=== PATIENT | male | born 1965 | race Caucasian/White ===

== ENCOUNTER 2017-10-10 07:59 | Day surgery (SDC) | payer BC ==
--- NOTE | 2017-10-04 07:46 | HP ---
CC: Tapan Todd MD * ADMITTING HISTORY AND PHYSICAL: DATE OF ADMISSION: 10/10/17 ADMITTING DIAGNOSIS: Right renal calculus. PLANNED PROCEDURE: Shockwave lithotripsy of right renal calculus. SURGEON: Josh Oakes MD HISTORY OF PRESENT ILLNESS: Cyrus Sullivan is a 51-year-old gentleman with a history of recurrent renal calculi. He had originally been evaluated for left- sided pain which is related to a calculus that I suspect that he passed. He was noted at that time to have an 8-mm nonobstructing calculus in the right kidney and is now being brought in for shockwave lithotripsy for this right- sided calculus. PAST MEDICAL HISTORY: Significant for: 1. Hypertension. 2. History of herniated disk (cervical and lumbar). 3. Recurrent renal calculi. PAST SURGICAL HISTORY: Significant for: 1. Appendectomy. 2. Bilateral knee arthroscopies. MEDICATIONS ON ADMISSION: 1. Amlodipine 5 mg a day. 2. Aspirin 81 mg which is currently on hold. ALLERGIES: No known drug allergies. FAMILY HISTORY: Both his mother and father have had kidney stones. SMOKING HISTORY: He is a nonsmoker. REVIEW OF SYSTEMS: He denies any chest pain or shortness of breath. There is no history of diabetes mellitus or any other major systemic illness. PHYSICAL EXAMINATION GENERAL: Reveals a pleasant healthy-appearing middle aged gentleman. VITAL SIGNS: Blood pressure is 142/86, pulse 88 per minute and regular, oxygen saturation 96% on room air. LUNGS: Clear bilaterally. CARDIOVASCULAR: Regular rate and rhythm. S1, S2. ABDOMEN: Soft without masses. IMPRESSION: A 51-year-old gentleman with an 8-mm calculus in the right kidney who desires treatment of the same. I have discussed the procedure including possible risks of bleeding, infection, incomplete fragmentation, and possible injury to the kidney. He understands and wishes to proceed as planned. PLAN: Shockwave lithotripsy of right renal calculus. [id number]/[facility] #: [id number] MTDD
[~2017-10-10 07:59] MED LIST: Buffered Lidocaine 0.9% SYRIN* 5 ML/SYR SYRINGE INTRADERM ONE; DiMENhydriNATE IV* 50 MG/ML VIAL IV PUSH PRN; Famotidine IV* 10 MG/ML 2 ML (20 mg) IV ONE; Morphine INJ* 2 MG/ML 1 ML CARPUJECT IV PRN; Naloxone* 0.4 MG/ML 1 ML VIAL IV PRN; PROCHLORPERAZINE INJ 5 MG/ML 2 ML VIAL IV PRN; Scopolamine 1.5 mg* PATCH TRANSDERM PRN; cefTRIAXone(*) 2 GM in NS 0.9% 50 ML* 50 ML IVPB ONE; fentaNYL* 50 MCG/ML 2 ML VIAL (100 MCG VIAL) IV PRN; oxyCODONE/Acetamin 5/325 MG* TAB PO PRN
[2017-10-10] MEDS ORDERED: cefTRIAXone(*) 2 GM ADDV.VIAL IVPB ONE (08:13)
[2017-10-10] MEDS ORDERED: Famotidine IV* 10 MG/ML 2 ML (20 mg) ONE (08:13)
[2017-10-10] MEDS ORDERED: fentaNYL* 50 MCG/ML 2 ML VIAL (100 MCG VIAL) ONE (09:48)
[2017-10-10] MEDS ORDERED: Midazolam* 1 MG/ML 5 ML VIAL (5 MG) ONE (09:49)
--- NOTE | 2017-10-10 10:25 | RAD ---
INDICATION: Nephrolithiasis. Lithotripsy. COMPARISON: September 30, 2017 TECHNIQUE: A single view of the abdomen is submitted. FINDINGS: Bones: There are no acute bony findings. Soft tissues: The soft tissues appear normal. The psoas margins are sharp. Bowel gas pattern: Normal Calcifications: There is a 5 mm lower pole right renal calculus. No other calcifications are seen. Other: None IMPRESSION: RIGHT-SIDED NEPHROLITHIASIS.
[2017-10-10] MEDS ORDERED: Ondansetron INJ* 2 MG/ML VIAL ONE (10:44)
[2017-10-10] MEDS ORDERED: Lidocaine 2% PF * 5 ML VIAL ONE (10:44)
[2017-10-10] MEDS ORDERED: Propofol* 10 MG/ML 20 ML BTL IV PUSH ONE (10:44)
[2017-10-10] MEDS ORDERED: Dexamethasone IV* 4 MG/ML 1 ML (4 MG) ONE (10:44)
[2017-10-10 12:13] VITALS: BP 145/94
--- NOTE | 2017-10-10 14:10 | RAD ---
INDICATION: Lithotripsy, postoperative study. COMPARISON: Comparison is made with a prior CT of the abdomen and pelvis from March 03, 2017 and a KUB study from October 10, 2017. TECHNIQUE: Frontal supine films of the abdomen were obtained. FINDINGS: The small bowel and colon appear nondistended. There are several small calcifications which project over the lower pole of the right kidney most consistent with calculus fragments. IMPRESSION: SMALL RIGHT RENAL CALCULI FRAGMENTS.
--- NOTE | 2017-10-10 23:59 | OP ---
CC: Dr. Todd * DATE OF OPERATION: 10/10/17 - SDS DATE OF : 63 SURGEON: Josh Oakes MD ANESTHESIOLOGIST: Dr. Olivo. ANESTHESIA: General. PRE-OP DIAGNOSIS: Right renal calculus. POST-OP DIAGNOSIS: Right renal calculus. OPERATIVE PROCEDURE: Shockwave lithotripsy of right renal calculus. COMPLICATIONS: None. POSTOPERATIVE CONDITION: Stable. INDICATIONS: Cyrus Sullivan is a 51-year-old gentleman who was evaluated and noted to have approximately 7 to 8 mm calculus in the right kidney. He desires treatment of the same and after a thorough discussion of the procedure and possible risks, he is now being brought in for shockwave lithotripsy of the right renal calculus. DESCRIPTION OF PROCEDURE: After induction of general anesthesia, the patient was placed on lithotripsy table in supine position. The calculus in the right kidney was localized using fluoroscopy. Shockwave lithotripsy was commenced at a rate of 90 shocks per minute. After the initial 300 shocks, there was a pause in lithotripsy for several minutes in an effort to minimize any potential trauma to the kidney. Lithotripsy was then resumed and periodic imaging revealed localization and fragmentation. A total of 2400 shocks were administered. The patient tolerated the procedure satisfactorily and was transferred back to the recovery area in stable condition. [id number]/[facility] #: [id number] MTDD
[2017-10-13] MEDS ORDERED: Scopolamine PATCH Remove* 1 NOTE MISC PATCH OFF ONE (06:02)
== END 2017-10-10 12:28 | disposition home or self-care (01) ==
LOC: OR 07:59
PROVIDERS: ATTEND Urology
DX: N20.0 Calculus of kidney (principal); I10 Essential (primary) hypertension; Z87.442 Personal history of urinary calculi; G47.30 Sleep apnea, unspecified
CPT/HCPCS: 74018; J0696; J1100; J2250; J2405; J2704; J3010

== ENCOUNTER 2018-08-14 11:06 | Emergency (ER) | payer BC, OTHER ==
[2018-08-14 11:35] VITALS: BP 154/81
[2018-08-14] MEDS ORDERED: Ibuprofen TAB* 600 MG PO ONE (12:12)
--- NOTE | 2018-08-14 12:53 | UC ---
Lower Extremity/Ankle HPI - HPI Summary HPI Summary: 52 y/o male with c/o R heel pain. on while digging in gravel, patient was using foot on top of shovel to push into dirt, felt a "tweak" withou tmuch pain, was ambulatory without difficulty, next AM severe pain with difficulty walking, continues to today. pain worst at posterior heel, with moving ankle. Able to bear weight, howevere painful. No prior injuries, occurrences. - History of Current Complaint Chief Complaint: UCLowerExtremity Stated Complaint: LEG INJURY Time Seen by Provider: 08/14/18 12:00 Hx Obtained From: Patient Onset/Duration: Sudden Onset, Lasting Days Severity Initially: Moderate Severity Currently: Moderate Pain Intensity: 4 Pain Scale Used: 0-10 Numeric Aggravating Factor(s): Standing, Ambulation Alleviating Factor(s): Rest Able to Bear Weight: Yes - Allergies/Home Medications Allergies/Adverse Reactions: Allergies Allergy/AdvReac Type Severity Reaction Status Date / Time caffeine Allergy Intermediate Nausea Verified 08/14/18 11:35 naproxen Allergy Intermediate lightheaded Verified 08/14/18 11:35 ness NICOTINE RESIDUE SMOKE Allergy Severe EYES Uncoded 08/14/18 11:35 SWELL/ITCHY, ITCHY NOSE DIESEL FUMES Allergy Intermediate EYES Uncoded 08/14/18 11:35 SWELL/ITCHY, ITCHY NOSE POLLEN Allergy Intermediate EYES Uncoded 08/14/18 11:35 ITCHY, RED, FACIAL SWELLING PMH/Surg Hx/FS Hx/Imm Hx Previously Healthy: Yes - Surgical History Surgical History: Yes Surgery Procedure, Year, and Place: umbilical HERNIA REPAIR ,BILAT KNEE meniscus repair x3, APPENDECTOMY,RIGHT THUMB, - Social History Alcohol Use: Occasionally Substance Use Type: None Smoking Status (MU): Never Smoked Tobacco Have You Smoked in the Last Year: No Review of Systems All Other Systems Reviewed And Are Negative: Yes Musculoskeletal: Positive: Arthralgia, Decreased ROM, Edema, Myalgia Is Patient Immunocompromised?: No Physical Exam Triage Information Reviewed: Yes Appearance: Well-Appearing, Well-Nourished, Pain Distress - with mvement Vital Signs: Initial Vital Signs Temp 98.3 F 08/14/18 11:29 Pulse 104 08/14/18 11:29 Resp 16 08/14/18 11:29 BP 154/81 08/14/18 11:29 Pulse Ox 97 08/14/18 11:29 Vital Signs Reviewed: Yes Eyes: Positive: Conjunctiva Clear Musculoskeletal: Positive: Strength Limited @ - decreased ROM with pain with PF , ROM Limited @ - minimal PF, mild DF, Edema @ - posterior calceneus region, Other: Neurological Exam: Normal Neurological: Positive: Other: - sitlt distal to R knee Psychological Exam: Normal Skin Exam: Normal Skin: Positive: Other - mild erythema noted psoterior calcaneus region, no ecchymosis noted + edema Lower Extremity Course/Dx - Course Course Of Treatment: radiograph- neg for fx, follow up with ortho, CAM boot with posterior heel pad, percocet for pain NSAIDs for inflammation - Differential Dx/Diagnosis Provider Diagnosis: Achilles tendon sprain Discharge - Sign-Out/Discharge Documenting (check all that apply): Patient Departure All imaging exams completed and their final reports reviewed: Yes - Discharge Plan Condition: Good Disposition: HOME Prescriptions: Ibuprofen TAB* [Motrin TAB* 800 MG] 800 mg PO Q8H #90 tab Oxycodone HCl/Acetaminophen [Percocet 5-325 mg Tablet] 1 each PO Q4H PRN #30 tablet MDD 6 PRN Reason: Pain Patient Education Materials: Achilles Tendinitis (ED) Forms: *Work Release Referrals: Brian Palacios MD [Medical Doctor] - Tapan Todd MD [Primary Care Provider] - Additional Instructions: - Ibuprofen 800mg three times a day for swelling, pain - Percocet as needed every 4-6 hours for pain - CAM walking boot with padding under heel when ever active - Crutches as needed - Follow up with orthopedics within 3-7 days - REturn with increasd pain, coolness, numbness/ tingling - Billing Disposition and Condition Condition: GOOD Disposition: Home
== END 2018-08-14 13:15 | disposition home or self-care (01) ==
LOC: UCEAST 11:06
DX: S86.011A Strain of right Achilles tendon, initial encounter (principal); Z91.09 Other allergy status, other than to drugs and biological substances; Z88.8 Allergy status to other drugs, medicaments and biological substances; X58.XXXA Exposure to other specified factors, initial encounter; Y92.9 Unspecified place or not applicable
CPT/HCPCS: 99213; A9270-GY; G0463